=== PATIENT | female | born 1980 | race Hispanic/Latino ===

== ENCOUNTER 2018-06-26 03:31 | Emergency (ER) | payer SELFPAY ==
[2018-06-26] MEDS ORDERED: ALBUTEROL 2.5 MG/3 ML NEB SOL ONE (04:12)
[2018-06-26] MEDS ORDERED: IPRATROPIUM BROM 0.5MG/2.5ML ONE (04:12)
[2018-06-26] MEDS ORDERED: predniSONE 20 MG TAB ONE (04:13)
--- NOTE | 2018-06-26 04:31 | ER ---
Nurse's Notes [facility] Name: Ruma Mott Age: 37 yrs Sex: Female : 1980 Arrival Date: 06/26/2018 Time: 03:32 Bed 6 Private MD: Diagnosis: Acute bronchitis Presentation: 06/26 03:42 Presenting complaint: Patient states: Symptoms started Monday, sore throat, tl2 congestion, cough. Breathing difficulty started this morning, pt states she feels like she can't get a full breath. Reports swelling in feet. Transition of care: patient was not received from another setting of care. Onset of symptoms was June 23, 2018. Risk Assessment: Do you want to hurt yourself or someone else? Patient reports no desire to harm self or others. Initial Sepsis Screen: Does the patient meet any 2 criteria? HR > 90 bpm. Does the patient have a suspected source of infection? No. Patient's initial sepsis screen is negative. Care prior to arrival: None. 03:42 Method Of Arrival: Ambulatory tl2 03:42 Acuity: CAROL 3 tl2 Triage Assessment: 03:44 General: Appears in no apparent distress. uncomfortable, Behavior is calm, cooperative, tl2 appropriate for age. Pain: Denies pain. Neuro: Level of Consciousness is awake, alert, obeys commands, Oriented to person, place, time, situation. Cardiovascular: Denies chest pain. Cardiovascular: Edema is 1+ to left foot, left toes, right foot and right toes. Respiratory: Reports shortness of breath cough that is productive, Airway is patent Respiratory effort is even, unlabored, Respiratory pattern is regular, symmetrical, Breath sounds with wheezes bilaterally. in left posterior upper lobe and right posterior upper lobe. GI: No signs and/or symptoms were reported involving the gastrointestinal system. : No signs and/or symptoms were reported regarding the genitourinary system. Derm: Skin is pink, warm \T\ dry. 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 - Social history:: Smoking status: Patient/guardian denies using tobacco. - Ebola Screening: : No symptoms or risks identified at this time. Screenin:46 Abuse screen: Denies threats or abuse. Nutritional screening: No deficits noted. tl2 Tuberculosis screening: No symptoms or risk factors identified. Fall Risk None identified. Assessment: 04:25 Reassessment: Patient and/or family updated on plan of care and expected duration. Pain ea level reassessed. Patient is alert, oriented x 3, equal unlabored respirations, skin warm/dry/pink. Patient states feeling better. 04:36 Reassessment: Patient and/or family updated on plan of care and expected duration. Pain ea level reassessed. Patient is alert, oriented x 3, equal unlabored respirations, skin warm/dry/pink. Discharge instruction given to patient, verbalized the understanding of instruction. Pt left ambulatory with family member, tolerating well. Patient states feeling better. Vital Signs: 03:44 BP 159 / 89; Pulse 106; Resp 24; Temp 98.4(O); Pulse Ox 96% on R/A; Weight 99.79 kg; tl2 Height 4 ft. 5 in. (134.62 cm); Pain 0/10; 04:28 BP 158 / 88; Pulse 95; Resp 20; Pulse Ox 98% on R/A; ea 04:35 BP 143 / 85; Pulse 90; Resp 20; Pulse Ox 99% ; ea 03:44 Body Mass Index 55.06 (99.79 kg, 134.62 cm) tl2 ED Course: 03:32 Patient arrived in ED. am2 03:37 Jake Salmon MD is Attending Physician. gs 03:44 Triage completed. tl2 03:44 Arm band placed on right wrist. tl2 03:46 Patient has correct armband on for positive identification. Bed in low position. Call tl2 light in reach. Side rails up X 1. Adult w/ patient. 04:25 No provider procedures requiring assistance completed. ea 04:38 Patient did not have IV access during this emergency room visit. ea Administered Medications: 04:00 Drug: predniSONE 40 mg Route: PO; ea 04:20 Follow up: Response: No adverse reaction ea 04:02 Drug: Albuterol 2.5 mg Route: Inhalation; ea 04:16 Follow up: Response: No adverse reaction ea 04:02 Drug: AtroVENT Aerosol 0.5 mg Route: Inhalation; ea 04:15 Follow up: Response: No adverse reaction ea Outcome: 04:30 Discharge ordered by . gs 04:37 Discharge instructions given to patient, Instructed on discharge instructions, follow ea up and referral plans. medication usage, Demonstrated understanding of instructions, follow-up care, medications, Prescriptions given X 2. 04:39 Discharged to home ambulatory, with family. ea 04:39 Condition: improved 04:39 Patient left the ED. ea Signatures: Vi Melendez, RN RN tl2 Sarah Esparza Elena RN RN Jake Holliday MD MD gs
--- NOTE | 2018-06-26 04:31 | EDPHYS ---
Physician Documentation [facility] Name: Ruma Mott Age: 37 yrs Sex: Female : 1980 Arrival Date: 06/26/2018 Time: 03:32 Bed 6 Private MD: ED Physician Jake Salmon HPI: 06/26 04:27 This 37 yrs old Female presents to ER via Ambulatory with complaints of Cough. gs 04:27 The patient or guardian reports cough, that is intermittent, difficulty breathing. gs Onset: The symptoms/episode began/occurred 2 day(s) ago, and became persistent. Severity of symptoms: At their worst the symptoms were moderate, in the emergency department the symptoms are unchanged. Modifying factors: The symptoms are alleviated by nothing, the symptoms are aggravated by cold weather. Associated signs and symptoms: Pertinent negatives: fever. The patient has experienced similar episodes in the past, a few times. 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 - Social history:: Smoking status: Patient/guardian denies using tobacco. - Ebola Screening: : No symptoms or risks identified at this time. ROS: 04:27 All other systems are negative. gs Exam: 04:27 Head/Face: Normocephalic, atraumatic. Eyes: Pupils equal round and reactive to light, gs extra-ocular motions intact. Lids and lashes normal. Conjunctiva and sclera are non-icteric and not injected. Cornea within normal limits. Periorbital areas with no swelling, redness, or edema. ENT: Nares patent. No nasal discharge, no septal abnormalities noted. Tympanic membranes are normal and external auditory canals are clear. Oropharynx with no redness, swelling, or masses, exudates, or evidence of obstruction, uvula midline. Mucous membranes moist. Neck: Trachea midline, no thyromegaly or masses palpated, and no cervical lymphadenopathy. Supple, full range of motion without nuchal rigidity, or vertebral point tenderness. No Meningismus. Chest/axilla: Normal chest wall appearance and motion. Nontender with no deformity. No lesions are appreciated. Cardiovascular: Regular rate and rhythm with a normal S1 and S2. No gallops, murmurs, or rubs. Normal PMI, no JVD. No pulse deficits. Abdomen/GI: Soft, non-tender, with normal bowel sounds. No distension or tympany. No guarding or rebound. No evidence of tenderness throughout. Back: No spinal tenderness. No costovertebral tenderness. Full range of motion. Skin: Warm, dry with normal turgor. Normal color with no rashes, no lesions, and no evidence of cellulitis. MS/ Extremity: Pulses equal, no cyanosis. Neurovascular intact. Full, normal range of motion. Neuro: Awake and alert, GCS 15, oriented to person, place, time, and situation. Cranial nerves II-XII grossly intact. Motor strength 5/5 in all extremities. Sensory grossly intact. Cerebellar exam normal. Normal gait. 04:27 Constitutional: The patient appears alert, awake. 04:27 Respiratory: the patient does not display signs of respiratory distress, Respirations: accessory muscle usage, is absent, tachypnea, that is mild, Breath sounds: wheezing: expiratory that is moderate, is scattered. Vital Signs: 03:44 BP 159 / 89; Pulse 106; Resp 24; Temp 98.4(O); Pulse Ox 96% on R/A; Weight 99.79 kg; tl2 Height 4 ft. 5 in. (134.62 cm); Pain 0/10; 04:28 BP 158 / 88; Pulse 95; Resp 20; Pulse Ox 98% on R/A; ea 04:35 BP 143 / 85; Pulse 90; Resp 20; Pulse Ox 99% ; ea 03:44 Body Mass Index 55.06 (99.79 kg, 134.62 cm) tl2 MDM: 03:50 Patient medically screened. 04:27 Differential Diagnosis: Bronchitis Upper Respiratory Infection Pharyngitis. Data gs reviewed: vital signs, nurses notes. Counseling: I had a detailed discussion with the patient and/or guardian regarding: the historical points, exam findings, and any diagnostic results supporting the discharge/admit diagnosis, the need for outpatient follow up. Response to treatment: the patient's symptoms have markedly improved after treatment, the patient's condition has returned to base line. Administered Medications: 04:00 Drug: predniSONE 40 mg Route: PO; ea 04:20 Follow up: Response: No adverse reaction ea 04:02 Drug: Albuterol 2.5 mg Route: Inhalation; ea 04:16 Follow up: Response: No adverse reaction ea 04:02 Drug: AtroVENT Aerosol 0.5 mg Route: Inhalation; ea 04:15 Follow up: Response: No adverse reaction ea Disposition: 06/26/18 04:30 Discharged to Home. Impression: Acute bronchitis. - Condition is Stable. - Discharge Instructions: Acute Bronchitis, Adult. - Prescriptions for Prednisone 20 mg Oral Tablet - take 2 tablet by ORAL route once daily for 5 days; 10 tablet. Albuterol Sulfate 90 mcg/actuation - inhale 1-2 puff by INHALATION route every 4-6 hours; 1 Inhaler. - Medication Reconciliation Form, Thank You Letter, Antibiotic Education, Prescription Opioid Use form. - Follow up: Private Physician; When: 2 - 3 days; Reason: Re-evaluation by your physician. Signatures: Vi Melendez RN RN tl2 Mary Cantu RN RN ea Starr, Gregory, MD MD Corrections: (The following items were deleted from the chart) 04:39 04:30 06/26/2018 04:30 Discharged to Home. Impression: Acute bronchitis. Condition is ea Stable. Forms are Medication Reconciliation Form, Thank You Letter, Antibiotic Education, Prescription Opioid Use. Follow up: Private Physician; When: 2 - 3 days; Reason: Re-evaluation by your physician. gs
== END 2018-06-26 04:39 | disposition home or self-care (01) ==
LOC: ER 03:31
DX: J20.9 Acute bronchitis, unspecified (principal); I10 Essential (primary) hypertension; Z88.8 Allergy status to other drugs, medicaments and biological substances
CPT/HCPCS: 99284; J7512

== ENCOUNTER 2024-11-25 21:43 | Emergency (ER) | payer SELFPAY ==
[2024-11-25] MEDS ORDERED: ONDANSETRON 4 MG/2 ML VIAL ONE (22:30)
[2024-11-25] MEDS ORDERED: NA CHLORIDE 0.9% 1,000 ML ONE (22:31)
[2024-11-25] MEDS ORDERED: MORPHINE 4 MG/ML SYR ONE (22:31)
[2024-11-25 22:48] LABS: Absolute Lymphocytes (CBC) 1.4 K/uL (0.7-4.9); Hematocrit 50.0 % (36.0-45.0); Hemoglobin 15.4 g/dL (12.0-15.0); MCH 23.2 pg (27.0-35.0); MCHC 30.8 g/dL (32.0-36.0); MCV 75.5 fL (80-100); MPV 10.5 fL (7.6-11.3); Nucleated RBC Absolute Count 0.0 (0-0); Nucleated Red Blood Cells % 0.0 % (0-0); RBC Red Blood Cell Count 6.63 M/uL (3.86-4.86); White Blood Count 9.70 thou/uL (4.3-10.9)
[2024-11-25 22:59] LABS: ALT/SGPT 45.0 U/L (13-56); AST/SGOT 30.0 U/L (15-37); Albumin 3.2 g/dL (3.4-5.0); Albumin/Globulin Ratio 0.7 (1.1-1.8); Alkaline Phosphatase 82.0 U/L (45-117); Anion Gap 10.1 mEq/L (5.0-15.0); BUN Blood Urea Nitrogen 13.0 mg/dL (7-18); Globulin 4.3 g/dL (2.3-3.5); Glucose Level 156.0 mg/dL (74-106); Lipase 25.0 U/L (13-75); Potassium 4.1 mEq/L (3.5-5.1)
--- NOTE | 2024-11-26 00:08 | EDPHYS ---
Physician Documentation [facility] Name: Ruma Mott Age: 44 yrs Sex: Female : 1980 Arrival Date: 11/25/2024 Time: 21:43 Bed 8 Private MD: ED Physician Reddy Ac HPI: 11/26 00:08 This 44 yrs old Female presents to ER via Ambulatory with complaints of dr5 Abdominal Pain, Nausea/Vomiting. 00:08 Onset: The symptoms/episode began/occurred 43 day(s) ago. The patient has experienced a dr5 previous episode, approximately 2 days ago. Patient is a 44-year-old female with history of hypertension and achondroplasia coming in with nausea, vomiting, generalized abdominal pain. Patient reports that she was at [facility] 2 days ago and had lab tests including CBC, CMP, hCG, lipase, UA, and CT abdomen with IV contrast completed. Patient reports they discharged her with Zofran and Bentyl but medications not helping her. Patient also reports she has oxygen at home but does not know how to use it.. Historical: - Allergies: 11/25 22:02 Phenergan; ha1 - PMHx: 22:02 Hypertension; ha1 - Immunization history:: Adult Immunizations up to date. - Infectious Disease History:: Denies. - Social history:: Smoking status: Patient denies any tobacco usage or history of. ROS: 11/26 00:08 Constitutional: as per hpi dr5 Exam: 00:08 Constitutional: This is a well developed, well nourished patient who is awake, alert, dr5 and in no acute distress. Head/Face: Normocephalic, atraumatic. Eyes: Pupils equal round and reactive to light, extra-ocular motions intact. Lids and lashes normal. Conjunctiva and sclera are non-icteric and not injected. Cornea within normal limits. Periorbital areas with no swelling, redness, or edema. Neck: Trachea midline, no thyromegaly or masses palpated, and no cervical lymphadenopathy. Supple, full range of motion without nuchal rigidity, or vertebral point tenderness. No Meningismus. Chest/axilla: Normal chest wall appearance and motion. Nontender with no deformity. No lesions are appreciated. Cardiovascular: Regular rate and rhythm with a normal S1 and S2. Normal PMI, no JVD. No pulse deficits. Respiratory: Lungs have equal breath sounds bilaterally, clear to auscultation. No rales, rhonchi or wheezes noted. No increased work of breathing, no retractions or nasal flaring. Back: No spinal tenderness. No costovertebral tenderness. Full range of motion. Skin: Warm, dry with normal turgor. Normal color with no rashes, no lesions, and no evidence of cellulitis. MS/ Extremity: Pulses equal, no cyanosis. Neurovascular intact. Full, normal range of motion. Neuro: Awake and alert, GCS 15, oriented to person, place, time, and situation. Cranial nerves II-XII grossly intact. Motor strength 5/5 in all extremities. Sensory grossly intact. Cerebellar exam normal. Normal gait. Vital Signs: 11/25 21:59 BP 117 / 80; Pulse 90; Resp 19 S; Temp 97.5(O); Pulse Ox 97% on R/A; Weight 93.44 kg; ha1 Height 4 ft. 10 in. ; 22:59 BP 112 / 87; Pulse 78; Resp 18; Pulse Ox 93% 3 lpm ; kt5 11/26 00:35 BP 109 / 69; Pulse 80; Resp 16; Temp 98.6; Pulse Ox 94% 2 lpm ; Pain 4/10; kt5 00:51 BP 103 / 77; Pulse 76; Resp 18; Pulse Ox 95% 2 lpm ; kt5 11/25 21:59 Body Mass Index 43.05 (93.44 kg, 147.32 cm) ha1 11/26 00:35 Pain Scale: Adult kt5 MDM: 11/25 21:48 Medical Screening Exam initiated dr5 11/26 00:08 Differential diagnosis: diverticulitis, gastritis, pancreatitis, urinary tract dr5 infection. Data reviewed: vital signs, nurses notes, lab test result(s), CBC, white blood cell count, hemoglobin, hematocrit, platelets, electrolytes, sodium, potassium, chloride, serum bicarbonate, BUN, creatinine, serum glucose, urinalysis. Consideration of Admission/Observation Escalation of care including admission/observation considered. Escalation considered patient was not feeling better after medication or patient found to have pancreatitis. I considered the following discharge prescriptions or medication management in the emergency department I discussed and recommended Over The Counter medications, Medications were administered in the Emergency Department. See MAR. Test considered but Not performed: CT: CT considered but not completed due to being done 2 days ago and I have results in hand.. Historians other than the Patient: Spouse/Significant Other: Significant other. External Records Reviewed: Outside ED record: Outside emergency department record from [facility] with lab results and CT scan results that shows white blood cell count of 13.75, hCG less than 4, lipase of 33, unremarkable UA. CT abdomen pelvis with contrast impression states no acute abdominal or pelvic abnormality. Mild colonic diverticulosis most prominent in the sigmoid colon region with no CT evidence of diverticulitis. No fluid seen in the colon. Patient also found to have left uterine fundus which could represent a uterine fibroid. Nonemergent sonography may be performed for complete assessment. No other acute findings.. Placed all labs and records in patient's chart to be scanned in.. Care significantly affected by the following chronic conditions: Hypertension. Care significantly affected by the following Social Determinants of Health: Poor access to healthcare and/or lack of insurance, Poor access to transportation, Problems related to employment. Counseling: I had a detailed discussion with the patient and/or guardian regarding the historical points, exam findings, and any diagnostic results supporting the discharge/admit diagnosis, the presence of at least one elevated blood pressure reading (>120/80) during this emergency department visit, lab results, the need for outpatient follow up, for definitive care, a family practitioner, a machine silk screen printer, to return to the emergency department if symptoms worsen or persist or if there are any questions or concerns that arise at home. Medication response: Response to treatment: the patient's symptoms have resolved after treatment, the patient is now symptom free. Special discussion: Based on the patient's Hx, exam, and Dx evaluation, there is no indication for emergent surgery or inpatient Tx. It is understood by the patient/guardian that if the Sx's persist or worsen they need to return immediately for re-evaluation. Based on the history and exam findings, there is no indication for further emergent testing or inpatient evaluation. I discussed with the patient/guardian the need to see the machine silk screen printer for further evaluation of the symptoms. ED course: All labs printed and given to patient. Recommend patient follow primary care doctor as well as GI. All questions answered. Strict ER precautions given. Also had patient's bring concentrator up to ER to help her set it up. Patient was placed on 2 L at home oxygen. Patient has home oxygen pulse ox with readings of 94 to 95% on discharge on home oxygen. Will have patient follow-up pulmonology this week.. 11/25 22:05 Order name: CBC with Diff; Complete Time: 00:26 dr5 11/25 22:05 Order name: CMP; Complete Time: 23:00 dr5 11/25 22:05 Order name: Lipase; Complete Time: 23:00 dr5 11/25 22:51 Order name: CBC Smear Scan; Complete Time: 00:26 EDMS 11/25 22:05 Order name: IV Saline Lock; Complete Time: : dr5 11/25 22:05 Order name: Labs collected and sent; Complete Time: : dr5 Administered Medications: 11/25 22:38 Drug: Ondansetron IVP 4 mg IVP once; over 2 minutes Route: IVP; Site: right antecubital;jb4 11/26 00:39 Follow up: Response: No adverse reaction; Nausea is decreased kt5 11/25 22:38 Drug: NS 0.9% IV 1000 ml IV at 1 bolus Per protocol; to be given as a bolus over 60 jb4 minutes Route: IV; Rate: 1 bolus; Site: right antecubital; 11/26 00:40 Follow up: Response: No adverse reaction; IV Status: Completed infusion; IV Intake: kt5 1000ml 11/25 22:38 Drug: morphine IVP or IV 4 mg IVP once over 4 mins Route: IVP; Infused Over: 4 mins; jb4 Site: right antecubital; 11/26 00:40 Follow up: Response: No adverse reaction; Pain is decreased kt5 00:45 Drug: morphine IVP or IV 4 mg IVP once over 4 mins Route: IVP; Infused Over: 4 mins; kt5 Site: right antecubital; 01:02 Follow up: Response: No adverse reaction; Pain is decreased kt5 Disposition: 05:26 Co-signature as Attending Physician, Reddy Ac DO I agree with the assessment and tt7 plan of care. Disposition Summary: 11/26/24 00:07 Discharge Ordered Notes: Location: Home dr5 Condition: Stable dr5 Diagnosis - Other specified noninfective gastroenteritis and colitis dr5 Followup: dr5 - With: Emergency Department - When: As needed - Reason: Worsening of condition Followup: dr5 - With: Private Physician - When: 1 - 2 days - Reason: Recheck today's complaints, Continuance of care, Re-evaluation by your physician Discharge Instructions: - Discharge Summary Sheet dr5 - Colitis dr5 Forms: - Medication Reconciliation Form dr5 - Antibiotic Education dr5 - Prescription Opioid Use dr5 - Patient Portal Instructions dr5 - Leadership Thank You Letter dr5 Prescriptions: - Augmentin 875-125 mg Oral Tablet - take 1 tablet ORAL route every 12 hours for 10 days; 20 tablet; Refills: 0, dr5 Product Selection Permitted - Reglan 10 mg Oral Tablet - take 1 tablet ORAL route every 6 hours take 30 minutes before meals and at dr5 bedtime; 20 tablet; Refills: 0, Product Selection Permitted - Tramadol 50 mg Oral Tablet - take 1 tablet ORAL route every 8 hours as needed; 12 tablet; Refills: 0, dr5 Product Selection Permitted Signatures: Dispatcher [employer] Jean Rios, RN RN jb4 Mitra Candelaria RN RN ha1 Gerald Will, SLICE CUTTING MACHINE OPERATOR HELPER-C SLICE CUTTING MACHINE OPERATOR HELPER-Cdr5 Chuyita Lebron RN RN kt5 Reddy Ac, DO JAVIER tt7
--- NOTE | 2024-11-26 00:08 | ER ---
Nurse's Notes [facility] Name: Ruma Mott Age: 44 yrs Sex: Female : 1980 Arrival Date: 11/25/2024 Time: 21:43 Bed 8 Private MD: Diagnosis: Other specified noninfective gastroenteritis and colitis Presentation: 11/25 21:59 Chief complaint: Patient states: NAUSEA, VOMITING, ABDOMINAL PAIN SINCE LAST MONDAY. ha1 Coronavirus screen: Client denies travel out of the [place] in the last 14 days. Ebola Screen: No symptoms or risks identified at this time. Initial Sepsis Screen: Does the patient meet any 2 criteria? No. Patient's initial sepsis screen is negative. Does the patient have a suspected source of infection? No. Patient's initial sepsis screen is negative. Risk Assessment: Do you want to hurt yourself or someone else? Patient reports no desire to harm self or others. Onset of symptoms was November 25, 2024. 21:59 Method Of Arrival: Ambulatory ha1 21:59 Acuity: CAROL 3 ha1 Triage Assessment: 22:02 General: Appears uncomfortable, Behavior is calm, cooperative. Pain: Complains of pain ha1 in abdomen Pain currently is 10 out of 10 on a pain scale. Neuro: Level of Consciousness is awake, alert, obeys commands, Oriented to person, place, time, situation. Cardiovascular: Patient's skin is warm and dry. Respiratory: Airway is patent Respiratory effort is even, unlabored, Respiratory pattern is regular, symmetrical. GI: Abdomen is round obese, Reports nausea, vomiting. Historical: - Allergies: 22:02 Phenergan; ha1 - PMHx: 22:02 Hypertension; ha1 - Immunization history:: Adult Immunizations up to date. - Infectious Disease History:: Denies. - Social history:: Smoking status: Patient denies any tobacco usage or history of. Screenin:00 [facility] ED Fall Risk Assessment (Adult) History of falling in the last 3 months, jb4 including since admission No falls in past 3 months (0 pts) Confusion or Disorientation No (0 pts) Intoxicated or Sedated No (0 pts) Impaired Gait No (0 pts) Mobility Assist Device Used No (0 pt) Altered Elimination No (0 pt) Score/Fall Risk Level 0 - 2 = Low Risk Oriented to surroundings, Maintained a safe environment. Abuse screen: Denies threats or abuse. Nutritional screening: No deficits noted. Tuberculosis screening: No symptoms or risk factors identified. Assessment: 22:00 General: Appears in no apparent distress. uncomfortable, Behavior is calm, cooperative, jb4 appropriate for age. Pain: Complains of pain in abdomen Pain does not radiate. Pain currently is 10 out of 10 on a pain scale. Neuro: Level of Consciousness is awake, alert, obeys commands, Oriented to person, place, time, situation. Cardiovascular: Patient's skin is warm and dry. Respiratory: Airway is patent Respiratory effort is even, unlabored, Respiratory pattern is regular, symmetrical. GI: Abdomen is round obese, Reports lower abdominal pain, upper abdominal pain, diarrhea, nausea. Derm: Skin is intact, Skin is pink, warm \T\ dry. Musculoskeletal: Circulation, motion, and sensation intact. Range of motion: intact in all extremities. 22:50 General: received report from jean gresham, all questions answered. 11/26 00:35 Reassessment: Patient appears in no apparent distress at this time. Patient and/or kt5 family updated on plan of care and expected duration. Pain level reassessed. Patient is alert, oriented x 3, equal unlabored respirations, skin warm/dry/pink. Patient states feeling better. 01:03 Reassessment: Patient appears in no apparent distress at this time. Patient and/or kt5 family updated on plan of care and expected duration. Pain level reassessed. Patient is alert, oriented x 3, equal unlabored respirations, skin warm/dry/pink. Patient states feeling better. Patient states symptoms have improved. Vital Signs: 11/25 21:59 BP 117 / 80; Pulse 90; Resp 19 S; Temp 97.5(O); Pulse Ox 97% on R/A; Weight 93.44 kg; ha1 Height 4 ft. 10 in. ; 22:59 BP 112 / 87; Pulse 78; Resp 18; Pulse Ox 93% 3 lpm ; 11/26 00:35 BP 109 / 69; Pulse 80; Resp 16; Temp 98.6; Pulse Ox 94% 2 lpm ; Pain 4/10; kt 00:51 BP 103 / 77; Pulse 76; Resp 18; Pulse Ox 95% 2 lpm ; 11/25 21:59 Body Mass Index 43.05 (93.44 kg, 147.32 cm) ha1 11/26 00:35 Pain Scale: Adult kt5 ED Course: 11/25 21:46 Patient arrived in ED. mr 21:47 Gerald Will, RAYMUNDO-C is PHCP. dr5 21:47 Reddy Ac DO is Attending Physician. dr5 22:00 Patient has correct armband on for positive identification. Bed in low position. Call jb4 light in reach. Side rails up X 1. Provided Education on: plan of care. 22:02 Triage completed. ha1 22:04 Jean Dotson, RN is Primary Nurse. jb4 22:25 Inserted saline lock: 18 gauge in right antecubital area, using aseptic technique. jb4 Blood collected. 22:27 CBC with Diff Sent. jb4 22:27 CMP Sent. jb4 :27 Lipase Sent. jb4 11/26 01:03 IV discontinued, intact, bleeding controlled, No redness/swelling at site. Pressure kt5 dressing applied. 01:05 No provider procedures requiring assistance completed. kt5 Administered Medications: 11/25 22:38 Drug: Ondansetron IVP 4 mg IVP once; over 2 minutes Route: IVP; Site: right antecubital;jb4 11/26 00:39 Follow up: Response: No adverse reaction; Nausea is decreased kt5 11/25 22:38 Drug: NS 0.9% IV 1000 ml IV at 1 bolus Per protocol; to be given as a bolus over 60 jb4 minutes Route: IV; Rate: 1 bolus; Site: right antecubital; 11/26 00:40 Follow up: Response: No adverse reaction; IV Status: Completed infusion; IV Intake: kt5 1000ml 11/25 22:38 Drug: morphine IVP or IV 4 mg IVP once over 4 mins Route: IVP; Infused Over: 4 mins; jb4 Site: right antecubital; 11/26 00:40 Follow up: Response: No adverse reaction; Pain is decreased kt5 00:45 Drug: morphine IVP or IV 4 mg IVP once over 4 mins Route: IVP; Infused Over: 4 mins; kt5 Site: right antecubital; 01:02 Follow up: Response: No adverse reaction; Pain is decreased kt5 Medication: 11/25 22:59 VIS not applicable for this client. kt5 Intake: 11/26 00:40 IV: 1000ml; Total: 1000ml. kt5 Outcome: 00:07 Discharge ordered by . gonzalo 01:03 Discharged to home via wheelchair, with family, kt5 01:03 Condition: improved 01:03 Discharge instructions given to patient, family, Instructed on discharge instructions, follow up and referral plans. Demonstrated understanding of instructions, follow-up care, medications, Prescriptions given X 3, 01:06 Patient left the ED. kt5 Signatures: Magdalena Vincent, Reg Reg mr DotsonJean, RN RN jb4 Mitra Candelaria, RN RN ha1 Gerald Will, NATIONAL SALES ASSOCIATE-C NATIONAL SALES ASSOCIATE-Cdr5 Chuyita Lebron, RN RN kt5
[2024-11-26 00:24] LABS: Anisocytosis 2+; Blood Morphology Comment NOTED (NOT SEEN); Hypochromasia 1+; Microcytosis 2+; Teardrop Cell 3+; White Blood Cell Scan OK (OK)
[2024-11-26] MEDS ORDERED: MORPHINE 4 MG/ML SYR ONE (00:44)
[2024-11-26 01:35] VITALS: TEMP 98.6
[2024-11-26 01:37] VITALS: BP 103/77; O2SAT 95
== END 2024-11-26 01:06 | disposition home or self-care (01) ==
LOC: ER 21:43
DX: K52.89 Other specified noninfective gastroenteritis and colitis (principal)
CPT/HCPCS: 36415; 80053; 83690; 85025; 96361; 96374; 96375; 99284; J2405; J7030